=== PATIENT | male | born 1965 | race Caucasian/White ===

== ENCOUNTER 2016-09-25 11:57 | Emergency (ER) | payer SELFPAY ==
[~2016-09-25] VITALS: Ht 177.8 cm; Wt 99.8 kg
[2016-09-25 14:00] VITALS: BP 162/94
--- NOTE | 2016-09-25 14:51 | RAD ---
Indication pain. No history of injury. AP lateral and oblique views of the right knee were obtained as well as a sunrise view. No acute or significant bony abnormality is seen. There is mild patellofemoral narrowing
--- NOTE | 2016-09-25 15:59 | RAD ---
Indication right posterior knee pain. Grayscale color Doppler and spectral imaging was performed. The examination was targeted to the veins of the right lower extremity. The right common femoral, femoral and popliteal veins demonstrate normal flow compressibility and augmentation. No thrombus is seen. The visualized posterior tibial vein and peroneal vein also appeared unremarkable. There is, however, thrombus seen in the upper calf in the area of the gastrocnemius muscle consistent with thrombus in the gastrocnemius vein.) (The gastrocnemius vein is part of the deep system). Preliminary critical results were communicated to Brianne Lim, in the emergency room, at the time of dictation IMPRESSION: Occlusive thrombus in the right gastrocnemius vein
--- NOTE | 2016-09-25 16:22 | PHYS DOC ---
Past Medical History Past Medical History: Kidney Stone Alcohol Use: None Drug Use: None Adult General Chief Complaint Chief Complaint: KNEE INJURY HPI HPI Patient is a 51 year old male with history of smoking and kidney stones who presents today complaining of right lower extremity pain specifically behind his right knee that began yesterday. 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 He has no PCP. He has no chest pain or shortness of breath. No significant previous medical history. Review of Systems Review of Systems Constitutional: Denies fever or chills [] Eyes: Denies change in visual acuity, redness, or eye pain [] HENT: Denies nasal congestion or sore throat [] Respiratory: Denies cough or shortness of breath [] Cardiovascular: No additional information not addressed in HPI [] GI: Denies abdominal pain, nausea, vomiting, bloody stools or diarrhea [] : Denies dysuria or hematuria [] Musculoskeletal: Right lower extremity pain Integument: Denies rash or skin lesions [] Neurologic: Denies headache, focal weakness or sensory changes [] Endocrine: Denies polyuria or polydipsia [] Current Medications Current Medications Current Medications Medications (Trade) Dose Ordered Sig/[facility] Start Time Stop Time Status Last Admin Dose Admin Enoxaparin Sodium (Lovenox 100mg Syringe) 100 mg ONCE ONCE 09/25/16 17:00 09/25/16 17:01 DC 09/25/16 16:55 100 MG Enoxaparin Sodium (Lovenox Per Pharmacy Treatment Dosing) 1 each 1X STAT 09/25/16 16:40 09/25/16 16:46 DC Allergies Allergies Allergies Coded Allergies Type Severity Reaction Last Updated Verified No Known Drug Allergies 09/25/16 No Physical Exam Physical Exam Constitutional: Well developed, well nourished, no acute distress, non-toxic appearance. [] HENT: Normocephalic, atraumatic, bilateral external ears normal, oropharynx moist, no oral exudates, nose normal. [] Eyes: PERRLA, EOMI, conjunctiva normal, no discharge. [] Neck: Normal range of motion, no tenderness, supple, no stridor. [] Cardiovascular:Heart rate regular rhythm, no murmur [] Lungs & Thorax: Bilateral breath sounds clear to auscultation [] Abdomen: Bowel sounds normal, soft, no tenderness, no masses, no pulsatile masses. [] Skin: Warm, dry, no erythema, no rash. [] Back: No tenderness, no CVA tenderness. [] Extremities: Mild swelling noted behind the right knee. Tenderness to the area. Positive Homans sign to the right lower extremity. +2 right pedal pulse. Full range of motion to the right lower extremity. Cap refill less than 2 seconds the right lower extremity. Sensation intact to the right lower extremity. Neurologic: Alert and oriented X 3, normal motor function, normal sensory function, no focal deficits noted. [] Psychologic: Affect normal, judgement normal, mood normal. [] Current Patient Data Vital Signs Vital Signs Date Time Temp Pulse Resp B/P (MAP) Pulse Ox O2 Delivery O2 Flow Rate FiO2 09/25/16 14:00 97.8 72 162/94 (116) 99 97.8 EKG EKG [] Radiology/Procedures Radiology/Procedures [] Course & Med Decision Making Course & Med Decision Making Pertinent Labs and Imaging studies reviewed. 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 Patient has history of smoking and kidney stone otherwise no other medical history. X-rays of the right knee interpreted by radiologist were negative for any acute findings. Venous Doppler of the right lower extremity was positive for occlusive thrombus in the right gastrocnemius vein. Dr. Dodd was made aware. Vitals on arrival to the ED blood pressure 162/94, heart rate 72, O2 sats 99% on room air, temperature 97.8 16:30 Dr. Morse accepted patient for admission. 16:40 Patient refused to be admitted. He states he has a $200,000 truck that belongs to his boss and his own dog in the truck. He states he cannot leave the truck out today. He states he has to go back to the truck. Patient requested to be given medication to take as an outpatient. He has no medical insurance or follow-up. Informed patient this is a dangerous decision. Gave patient the risk of leaving AMA including . Spoke to Dr. Morse again. He stated we can give patient Lovenox in the ED and he can be discharged with Eloquis and he can sign out AMA and be requested to return back to the ED at any point he chooses to especially if he is not able to afford medication. We talked about smoking cessation and patient left 09/26/2016 Patient has called the ED multiple times stating he can not afford Eloquis. Patient was requesting a different anticoagulant medication including Coumadin. Informed patient we cannot put him on Coumadin over the phone with no PCP and no blood monitoring. I even offered to speak with the pharmacist when he was at the store to see if Exlatro will be cheaper they stated he can not afford it either. Informed patient he should consider coming back to the ED and be admitted. He did not give any solid answer on whether he will return or not. Dragon Disclaimer Dragon Disclaimer This electronic medical record was generated, in whole or in part, using a voice recognition dictation system. Departure Departure Impression: Primary Impression: Deep vein thrombosis (DVT) of right lower extremity Additional Impression: Smoking addiction Disposition: AGAINST MEDICAL ADVICE Condition: STABLE Referrals: NO PCP (PCP) Please consider following up with primary care doctor from the list provided as soon as possible Patient Instructions: Deep Vein Thrombosis Additional Instructions: You have a DVT/blood clot in the right lower extremity. We highly recommended you stay in the hospital. You decided to leave. Ensure you take the medication we prescribed. Your can come back to the ED to be evaluated at any time you choose to return. Stop smoking Scripts Apixaban (ELIQUIS) 5 Mg Tablet 5 MG PO BID, #60 TAB Prov: DEVIN LEE APRN 09/25/16 Problem Qualifiers Primary Impression: Deep vein thrombosis (DVT) of right lower extremity Affected thrombotic vein of extremity: unspecified vein of extremity Chronicity: acute Qualified Codes: I82.401 - Acute embolism and thrombosis of unspecified deep veins of right lower extremity DEVIN LEE APRN Sep 25, 2016 16:22
[2016-09-25] MEDS ORDERED: APIX5TAB PO (16:57)
== END 2016-09-25 17:03 | disposition left against medical advice (07) ==
LOC: ER 11:57
DX: I82.491 Acute embolism and thrombosis of other specified deep vein of right lower extremity (principal); F17.200 Nicotine dependence, unspecified, uncomplicated; Z87.442 Personal history of urinary calculi
CPT/HCPCS: 73564; 93971; 96372; 99284; J1650

== ENCOUNTER 2016-09-29 12:05 | Emergency (ER) | payer SELFPAY ==
[~2016-09-29] VITALS: Ht 177.8 cm; Wt 108.9 kg
[~2016-09-29 12:05] MED LIST: APIX5TAB PO
[2016-09-29 12:34] LABS: BASO # 0.1 x10^3/uL (0.0-0.2); BASO % 1 % (0-3); EOS % 1 % (0-3); HEMOGLOBIN 15.6 g/dL (13.0-17.5); LYMPH # 2.1 x10^3/uL (1.0-4.8); LYMPH % 16 % (24-48); MEAN CORPUSCULAR HEMOGLOBIN 32 pg (25-35); MEAN CORPUSCULAR HGB CONC 34 g/dL (31-37); MEAN CORPUSCULAR VOLUME 94 fL (79-100); MONO % 8 % (0-9); NEUT % 74 % (31-73); PLATELET COUNT 241 x10^3/uL (140-400); RED BLOOD COUNT 4.91 x10^6/uL (4.30-5.70); WHITE BLOOD COUNT 13.4 x10^3/uL (4.0-11.0)
--- NOTE | 2016-09-29 12:37 | EKG ---
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
[2016-09-29 12:39] VITALS: BP 128/78
[2016-09-29 12:45] LABS: CALCIUM 8.7 mg/dL (8.5-10.1); CREATININE 1.2 mg/dL (0.7-1.3); GFR 63.6; POTASSIUM 4.1 mmol/L (3.5-5.1)
--- NOTE | 2016-09-29 12:50 | RAD ---
Indication nontraumatic chest pain. Frontal and lateral views of the chest were obtained. No prior imaging of the chest is available. The heart, pulmonary vessels and mediastinum appear normal. The lungs are clear. There is no pleural fluid or pneumothorax. Bony structures appear grossly intact. IMPRESSION: No acute or focal process is seen in the chest
--- NOTE | 2016-09-29 13:12 | ED.ADGEN ---
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 Patient denies any injuries , states he does have a feeling of "congestion", across his anterior chest, is worse with deep inspiration, denies any nausea or vomiting today, states he did have a few episodes of nausea, vomiting and some diarrhea yesterday. Denies any abdominal pain. No sick contacts or exposures, fevers or chills, urinary complaints, patient states that the pain and swelling in his right leg is is improved. Review of Systems Review of Systems Constitutional: Denies fever or chills. [] Eyes: Denies change in visual acuity. [] HENT: Denies nasal congestion or sore throat. [] Respiratory: Denies cough, complaining of mild shortness of breath and chest tightness, "congestion".] Cardiovascular: Chest tightness. No edema. GI: Denies abdominal pain, nausea, vomiting, bloody stools or diarrhea. [] : Denies dysuria. [] Musculoskeletal: Denies back pain or joint pain. [] Integument: Denies rash. [] Neurologic: Denies headache, focal weakness or sensory changes. [] Endocrine: Denies polyuria or polydipsia. [] Lymphatic: Denies swollen glands. [] Psychiatric: Denies depression or anxiety. [] Current Medications Current Medications Current Medications Medications (Trade) Dose Ordered Sig/Susan Start Time Stop Time Status Last Admin Dose Admin Info (Do NOT chart on this entry -- for MONITORING) 1 each PRN DAILY PRN 09/29/16 13:30 10/01/16 13:29 Iohexol (Omnipaque 300 Mg/ml) 75 ml 1X ONCE 09/29/16 13:30 09/29/16 13:31 DC 09/29/16 13:34 75 ML Allergies Allergies Allergies Coded Allergies Type Severity Reaction Last Updated Verified No Known Drug Allergies 09/25/16 No Physical Exam Physical Exam Constitutional: Well developed, well nourished, no acute distress, non-toxic appearance. [] HENT: Normocephalic, atraumatic, bilateral external ears normal, oropharynx moist, no oral exudates, nose normal. [] Eyes: PERRLA, EOMI, conjunctiva normal, no discharge. [] Neck: Normal range of motion, no tenderness, supple, no stridor. [] Cardiovascular:Heart rate regular rhythm, no murmur, S1, S2, no rubs or gallops. [] Lungs & Thorax: Patient with clear equal breath sounds bilaterally, no wheezing , rhonchi, rales, no chest wall crepitus or tenderness. Abdomen: Bowel sounds normal, soft, no tenderness, no rebound, rigidity, no guarding, no masses, no pulsatile masses. [] Skin: Warm, dry, no erythema, no rash. [] Back: No tenderness, no CVA tenderness. [] Extremities: No tenderness, no cyanosis, no clubbing, ROM intact, no edema. Neurologic: Alert and oriented X 3, normal motor function, normal sensory function, no focal deficits noted. [] Psychologic: Affect normal, judgement normal, mood normal. [] Current Patient Data Vital Signs Vital Signs Date Time Temp Pulse Resp B/P (MAP) Pulse Ox O2 Delivery O2 Flow Rate FiO2 09/29/16 12:39 70 18 128/78 (95) 97 Room Air 09/29/16 12:29 98.6 98.6 Lab Values Laboratory Tests Test 09/29/16 12:15 White Blood Count 13.4 x10^3/uL (4.0-11.0) H Red Blood Count 4.91 x10^6/uL (4.30-5.70) Hemoglobin 15.6 g/dL (13.0-17.5) Hematocrit 46.0 % (39.0-53.0) Mean Corpuscular Volume 94 fL (79-100) Mean Corpuscular Hemoglobin 32 pg (25-35) Mean Corpuscular Hemoglobin Concent 34 g/dL (31-37) Red Cell Distribution Width 14.0 % (11.5-14.5) Platelet Count 241 x10^3/uL (140-400) Neutrophils (%) (Auto) 74 % (31-73) H Lymphocytes (%) (Auto) 16 % (24-48) L Monocytes (%) (Auto) 8 % (0-9) Eosinophils (%) (Auto) 1 % (0-3) Basophils (%) (Auto) 1 % (0-3) Neutrophils # (Auto) 9.9 x10^3uL (1.8-7.7) H Lymphocytes # (Auto) 2.1 x10^3/uL (1.0-4.8) Monocytes # (Auto) 1.1 x10^3/uL (0.0-1.1) Eosinophils # (Auto) 0.2 x10^3/uL (0.0-0.7) Basophils # (Auto) 0.1 x10^3/uL (0.0-0.2) Prothrombin Time 13.0 SEC (11.7-14.0) Prothrombin Time INR 1.0 (0.8-1.1) PTT 36 SEC (24-38) Sodium Level 144 mmol/L (136-145) Potassium Level 4.1 mmol/L (3.5-5.1) Chloride Level 107 mmol/L (98-107) Carbon Dioxide Level 27 mmol/L (21-32) Anion Gap 10 (6-14) Blood Urea Nitrogen 15 mg/dL (8-26) Creatinine 1.2 mg/dL (0.7-1.3) Estimated GFR (Cockcroft-Gault) 63.6 Glucose Level 95 mg/dL (70-99) Calcium Level 8.7 mg/dL (8.5-10.1) Troponin I Quantitative < 0.017 ng/mL (0.000-0.055) Laboratory Tests 09/29/16 12:15 Laboratory Tests 09/29/16 12:15 EKG EKG EC: Sinus rhythm, heart rate 70 beats/minute, left axis deviation with incomplete right bundle-branch block noted, contour normality is noted in the anterior and lateral leads, T-wave inversions noted in V5 and V6, mild baseline artifact noted. Abnormal ECG, does not meet STEMI criteria. As interpreted by me. Radiology/Procedures Radiology/Procedures [][facility] [address] [place] [address] IMAGING REPORT Signed PATIENT: CARLOZ ODOM ACCOUNT: [id number] : 1965 LOCATION: ER AGE: 51 SEX: M EXAM STATUS: REG ER ORD. PHYSICIAN: MAZIN DALY DO REASON: CP PROCEDURE: CHEST PA & LATERAL Indication nontraumatic chest pain. Frontal and lateral views of the chest were obtained. No prior imaging of the chest is available. The heart, pulmonary vessels and mediastinum appear normal. The lungs are clear. There is no pleural fluid or pneumothorax. Bony structures appear grossly intact. IMPRESSION: No acute or focal process is seen in the chest DICTATED and SIGNED BY: RIGOBERTO HILLIARD MD DATE: 09/29/161245 CC: MAZIN DALY DO; NO PCP ~ Impressions: [facility] [address] [place], [place] [id number] IMAGING REPORT Signed PATIENT: CARLOZ ODOM ACCOUNT: [id number] : 1965 LOCATION: ER AGE: 51 SEX: M EXAM STATUS: REG ER ORD. PHYSICIAN: MAZIN DALY DO REASON: DVT not on anticoagulation/ new CP today, r/o PE PROCEDURE: CT ANGIOGRAPHY CHEST Indication right leg DVT. Chest pain and tightness. Evaluate for pulmonary embolus. Axial images were obtained through the chest. The examination was to be tailored for detection of pulmonary embolus. MIP images were generated and reviewed. Approximately 75 cc of Omnipaque [address] imaging of the chest is available. There is very poor opacification of the pulmonary arteries. The study is close to being nondiagnostic for pulmonary emboli. No saddle embolus is suggested on this exam or definite embolus in the proximal main pulmonary arteries but, beyond this, the study is nondiagnostic. Some slight coronary artery calcification is noted. The thoracic aorta appears unremarkable. There is no significant hilar or mediastinal adenopathy. An acute parenchymal infiltrate in either lung is not seen. A dominant soft tissue mass in either lung is not seen. Imaging through the upper abdomen is unremarkable. IMPRESSION: Very limited study evaluating for pulmonary embolus. See above discussion. No saddle embolus or large thrombus is suggested in either main pulmonary artery. No acute finding seen in the chest PQRS Compliance Statement: One or more of the following individualized dose reduction techniques were utilized for this examination: 1. Automated exposure control 2. Adjustment of the mA and/or kV according to patient size 3. Use of iterative reconstruction technique DICTATED and SIGNED BY: RIGOBERTO HILLIARD MD DATE: 09/29/16 7515 CC: MAZIN DALY DO; NO PCP ~ Course & Med Decision Making Course & Med Decision Making Pertinent Labs and Imaging studies reviewed. (See chart for details) Lengthy discussion at bedside with patient, who is agreeable to receiving CT imaging of the chest to rule out PE at this time, with known DVT without anticoagulation. Unfortunately, PE study is limited, unable to really assess effectively 4 tablets. I discussed with the patient, as stated, unclear if he may still have a PE, or some other underlying abnormality causing his chest discomfort, and he remains any quickly as stated, I did contact social work and we do not have assistance for the patient in obtaining medications this time, received her primary care provider, insurance, or follow-up. Discussed with the patient that my recommend patient remains admission to the hospital for initiation of anticoagulation, additional assessment, and establishing follow- up care. Patient states that he is unable to do so at this time, because he did drive his truck to the emergency department, and cannot leave in the parking lot. He states that he is unable to stay and must drive his vehicle to his brother's home, where he'll be safe, patient is calm, cooperative, and appropriate his responses. He states then he can return to the ED and be admitted for anticoagulation rest with plan as stated. I did discuss with Dr. Salcido of internal medicine and the patient's plan at this time to sign out AGAINST MEDICAL ADVICE, and to be admitted for evaluation with pulmonary and anticoagulation. He is aware of the patient's evaluation and plan. Patient did sign out AGAINST MEDICAL ADVICE, stating that he would return to the hospital for admission. Dragon Disclaimer Dragon Disclaimer This electronic medical record was generated, in whole or in part, using a voice recognition dictation system. Departure Impression: Primary Impression: Left against medical advice Additional Impressions: Chest tightness Deep venous thrombosis Medical non-compliance Disposition: AGAINST MEDICAL ADVICE Condition: STABLE Problem Qualifiers MAZIN DALY DO Sep 29, 2016 13:12
[2016-09-29] MEDS ORDERED: CONTRAST GIVEN MC PRN (13:30)
[2016-09-29] MEDS ORDERED: IOHEXOL 300 MG/ML 75 ML VIAL IV ONE (13:30)
--- NOTE | 2016-09-29 14:25 | RAD ---
Indication right leg DVT. Chest pain and tightness. Evaluate for pulmonary embolus. Axial images were obtained through the chest. The examination was to be tailored for detection of pulmonary embolus. MIP images were generated and reviewed. Approximately 75 cc of Omnipaque [address] imaging of the chest is available. There is very poor opacification of the pulmonary arteries. The study is close to being nondiagnostic for pulmonary emboli. No saddle embolus is suggested on this exam or definite embolus in the proximal main pulmonary arteries but, beyond this, the study is nondiagnostic. Some slight coronary artery calcification is noted. The thoracic aorta appears unremarkable. There is no significant hilar or mediastinal adenopathy. An acute parenchymal infiltrate in either lung is not seen. A dominant soft tissue mass in either lung is not seen. Imaging through the upper abdomen is unremarkable. IMPRESSION: Very limited study evaluating for pulmonary embolus. See above discussion. No saddle embolus or large thrombus is suggested in either main pulmonary artery. No acute finding seen in the chest PQRS Compliance Statement: One or more of the following individualized dose reduction techniques were utilized for this examination: 1. Automated exposure control 2. Adjustment of the mA and/or kV according to patient size 3. Use of iterative reconstruction technique
[2016-10-02] MEDS ORDERED: WARF5TAB7 PO (14:23)
== END 2016-09-29 15:08 | disposition left against medical advice (07) ==
LOC: ER 12:05
DX: R07.89 Other chest pain (principal); I82.401 Acute embolism and thrombosis of unspecified deep veins of right lower extremity; R09.89 Other specified symptoms and signs involving the circulatory and respiratory systems; R06.02 Shortness of breath; Z91.14 Patient's other noncompliance with medication regimen; Z87.442 Personal history of urinary calculi
CPT/HCPCS: 36415; 71020; 71275; 80048; 84484; 85027; 85610; 85730; 93005; 99285; Q9967